=== PATIENT | male | born 1930 | race Caucasian/White ===

== ENCOUNTER 2021-04-16 13:59 | Emergency (ER) | payer MEDICARE ==
[~2021-04-16] VITALS: Ht 180.3 cm; Wt 77.1 kg
[2021-04-16 14:05] VITALS: BP_SYST 153
--- NOTE | 2021-04-16 14:05 | NUR ---
Pt to bed 7 for evaluation. Report given to PASCALE Beltran who will assume care.
--- NOTE | 2021-04-16 14:05 | NUR ---
Pt AAO and ambulatory reporting mechanical fall earlier today. Ambulance responded to his home and cleaned his wounds. Pt refused to go to the hospital but family decided to bring him anyway. Pt stated that he tripped on a rock and fell on his face and wrists. Pt reports 5/10 pain scale currently. Pt denies blood thinners and has only history of diabetes.
--- NOTE | 2021-04-16 14:10 | NUR ---
Dr Wolfe evaluating patient at bedside
[2021-04-16] MEDS ORDERED: IBUP-1969 PO (15:12)
[2021-04-16] MEDS ORDERED: HYDR-3917 PO (15:12)
[2021-04-16 15:40] VITALS: BP_SYST 138
--- NOTE | 2021-04-16 15:41 | NUR ---
Patient given written and verbal discharge instructions and verbalizes understanding. ER MD discussed with patient the results and treatment provided. Patient in stable condition. ID arm band removed. Rx of Hydrocodone/ Ibuprofen/ prednisone given. Patient educated on pain management and to follow up with PMD. Pain Scale 2/10. Opportunity for questions provided and answered. Medication side effect fact sheet provided.
== END 2021-04-16 15:41 | disposition home or self-care (01) ==
LOC: SED 13:59
DX: S09.90XA Unspecified injury of head, initial encounter (principal); M25.531 Pain in right wrist; W18.39XA Other fall on same level, initial encounter; Y93.89 Activity, other specified; Y92.89 Other specified places as the place of occurrence of the external cause; Y99.8 Other external cause status
CPT/HCPCS: 99283